=== PATIENT | male | born 1965 | race Caucasian/White ===

== ENCOUNTER 2020-06-09 08:20 | Outpatient (CLI) | payer OTHER, SELFPAY ==
[2020-06-09 08:50] LABS: Hematocrit 45.4 % (42.0-52.0); Hemoglobin 15.4 g/dL (14.0-18.0); Mean Corpuscular HGB Conc 33.9 g/dl (32-36); Mean Corpuscular Hemoglobin 31.5 pg (26-34); Mean Corpuscular Volume 92.8 fl (80-100); Mean Platelet Volume 9.3 fl (7.4-10.4); Platelet Count Result 250 k/mm3 (150-375); Red Blood Count 4.89 M/mm3 (4.6-6.20); Red Cell Distribution Width 13.7 % (11.5-14.5); White Blood Count 5.8 K/mm3 (4.5-10.0)
[2020-06-09 08:59] LABS: Add Urine Microscopic? YES; Appearance Urine Clear (Clear); Bacteria Urine Trace /hpf; Bilirubin Urine Negative (Negative); Blood Urine 1+ (Negative); Color Urine Yellow (Yellow); Glucose Urine UA Negative (Negative); Ketones Urine Negative (Negative); Leukocyte Esterase Ur Negative LEU/UL (NEGATIVE); Mucus Urine Heavy /lpf; Nitrate Urine Negative (Negative); Protein Urine Negative (Negative); RBC Urine 0-2 /hpf (0-2); Specific Grav Ur 1.027 (1.001-1.035); Squamous Epithelial Cell Urine Rare /hpf (Few); Urobilinogen Urine Negative mg/dL (<2.0); WBC Urine 0-3 /hpf (0-3)
[2020-06-09 09:01] LABS: Alanine Aminotransferase 23 U/L (4-50); Alkaline Phosphatase 60 U/L (38-126); Anion Gap 7 mmol/L (8-16); Aspartate Amino Transferase 27 U/L (17-59); Bilirubin,Total 0.6 mg/dL (0.2-1.3); Blood Urea Nitrogen 15 mg/dL (9-20); Calcium 8.7 mg/dL (8.4-10.2); Carbon Dioxide 26 mmol/L (22-30); Chloride 106 mmol/L (98-107); Cholesterol 167 mg/dL (0-200); Estimated Glomerular Filt Rate > 60; Glucose 118 mg/dL (75-110); HDL Direct 43 mg/dL; Potassium 4.1 mmol/L (3.4-5.0); Sodium 139 mmol/L (137-145); Triglycerides 63 mg/dL (<150)
[2020-06-09 09:12] LABS: LDL Cholesterol Direct 99 mg/dL
[2020-06-09 09:31] LABS: Prostate Specific Antigen 0.7 ng/mL (< OR = 4.0)
[2020-06-14 14:17] LABS: Testosterone Free 48.5 pg/mL (35.0-155.0); Testosterone Total 296 ng/dL (250-1100)
== END 2020-06-09 08:21 | disposition home or self-care (01) ==
PROVIDERS: PCP Family Medicine Sports Medicine; Visit Provider Family Medicine Sports Medicine
DX: Z00.00 Encounter for general adult medical examination without abnormal findings (principal); E66.9 Obesity, unspecified; N52.9 Male erectile dysfunction, unspecified; F41.9 Anxiety disorder, unspecified
CPT/HCPCS: 36415; 80053; 80061; 81001; 84153; 84402; 84403; 84443; 85027

== ENCOUNTER 2020-12-26 14:01 | Outpatient (CLI) | payer OTHER, SELFPAY ==
--- NOTE | ~2020-12-26 | XR_ITS ---
EXAMINATION: XR abdomen/kub 1V DATE: 12/26/2020 14:18 INDICATION: Kidney stone. TECHNIQUE: A supine view of the abdomen on 2 radiographs was obtained. COMPARISON: None. FINDINGS: There are no dilated loops of bowel. The kidneys are obscured by bowel. Calcifications in t he pelvis are likely phleboliths. IMPRESSION: 1. No visible urolithiasis. Reviewed, dictated and finalized at location A. DING CODE ADMINISTRATOR IMPRESSION: 1. No visible urolithiasis.
== END 2020-12-26 14:02 | disposition home or self-care (01) ==
LOC: ANHIMG 14:05
PROVIDERS: PCP Family Medicine Sports Medicine; Visit Provider Urology
DX: N20.0 Calculus of kidney (principal)
CPT/HCPCS: 74018

== ENCOUNTER → 2020-12-29 02:51 | Outpatient (CLI) | payer OTHER, SELFPAY ==
[2020-12-29 23:34] LABS: SARS-CoV-2 RNA PCR Negative
== END ==
PROVIDERS: PCP Family Medicine Sports Medicine; Visit Provider Urology
DX: Z01.812 Encounter for preprocedural laboratory examination (principal); Z20.822 Contact with and (suspected) exposure to COVID-19
CPT/HCPCS: C9803; U0003; U0005

== ENCOUNTER 2021-01-01 02:52 | Day surgery (SDC) | payer OTHER, SELFPAY ==
[2020-12-27 09:14] VITALS: BMI 32.8
[2021-01-01] VITALS (7 sets, daily range): BP systolic 123–146; BP diastolic 79–90; PULSE 57–74; RESP 12–20; TEMP 36.5–36.8; O2SAT 96–100
--- NOTE | ~2021-01-01 | XR_ITS ---
EXAMINATION: XR retrograde pyelo w/stent LT EXAM DATE: 01/01/2021 09:06 INDICATION: Left-sided obstructive nephropathy. TECHNIQUE: Fluoroscopy used during XR retrograde pyelo w/stent LT performed by Dr. Khang collins MD. The DAP for this procedure was 583 radcm2. FINDINGS: The left ureter was cannulated, injected in retrograde fashion and a double-J ureteral amaya nt was positioned. Correlate with procedure note. IMPRESSION: Fluoroscopy used during XR retrograde pyelo w/stent LT. Reviewed, dictated and finalized at location A. SHAPER
[2021-01-01] MEDS: LACTATED RINGERS 1,000 ML 30 ML IV CONT (06:56)
--- NOTE | 2021-01-01 07:40 | WPDHPUPDATE1 ---
History and Physical Update Update Date/Time: 01/01/21 07:40 History and Physical has been reviewed, including an updated exam of the patient. There are NO changes in the patient's condition. Risks, benefits, and alternatives have been discussed and questions answered. Patient agrees to proceed with procedure. Proceed with cysto, left ureteroscopy, stone extraction, possible laser and stent placement
--- NOTE | 2021-01-01 07:55 | WPDANESEPPF ---
Anes - Initial Pre Proc Eval Procedure: Operation Date: 01/01/21 08:15 Proposed Procedures p Cystoscopy, Left Retrograde Pyelogram, Left Ureteroscopy With Stone Extraction, Possible Left Stent Placement - Khang Blair MD s Possible Holmium Laser Procedure - Khang Blair MD Date/Time: 01/01/21 07:55 Surgeon: Khang Blair MD Pre Op Diagnosis: Left Ureteral Stone Patient Data Age: 55 Gender: M Height: 1.78 m Weight: 103.2 kg Last Vital Signs Temp 36.8 C 01/01/21 06:30 Pulse 74 01/01/21 06:30 Resp 20 01/01/21 06:30 BP 146/88 H 01/01/21 06:30 Pulse Ox 100 01/01/21 06:30 Allergies Allergy/AdvReac Type Severity Reaction Status Date / Time Penicillins Allergy Mild Swelling Verified 01/01/21 07:27 Home Medications Medication Instructions Recorded Confirmed Type brimonidine-timolol [Combigan] 1 drp EACH EYE DAILY 12/27/20 01/01/21 History hydrocodone-acetaminophen 1 tablet PO DAILY 12/27/20 12/27/20 History ondansetron 1 mg PO DAILY 12/27/20 12/27/20 History tamsulosin 1 mg PO DAILY 12/27/20 01/01/21 History Patient hx anesthesia problems: none Family hx anesthesia problems: none [facility] Past Medical History Medical History (Updated 01/01/21 @ 07:56 by Adams Merrill MD) Obesity GEORGE on CPAP Social History Social History Smoking status: Never smoker Second hand tobacco smoke exposure: No Substance use: never Substance use type: does not use Living arrangements: with family Gender identity (if verbalized by the patient): Male Spiritual care concerns: No Anes - Eval Final PreProcedure Day of Procedure 01/01/21 07:55 Patient weight: obese Heart: regular rate and rhythm Lungs: clear to auscultation and normal air movement Airway: Mallampati scale class II Neurological: alert and oriented Last oral intake: >/= 8 hours ASA classification: II Emergent: no Anesthetic plan: proceed Anesthesia type and monitoring: general LMA Informed Consent: The patient's anesthetic plan and its attendant risks and benefits were discussed with the patient/family/POA. Questions were solicited and answers provided to the satisfaction of the patient/family/POA.
[2021-01-01] MEDS: levoFLOXacin 500 MG/D5W 100 ML 500 MG/100 ML BAG 100 MG IVPB (08:23)
[2021-01-01] MEDS: LIDOCAINE HCL 2% GEL UROJET 10 ML PKG MUCOUS MEM (08:54)
--- NOTE | 2021-01-01 09:02 | PM.PROC ---
Procedure Note - Detailed Date of procedure: 01/01/21 Pre-op diagnosis: Left Ureteral Stone Post-op diagnosis: same Procedure performed: Cystoscopy, left retrograde pyelogram, left ureteroscopy, holmium laser of left ureteral stone, stone extraction, left ureteral stent placement 4.8 Iranian contour. Description of procedure: Patient is taken the operative suite and correctly identified. Once anesthesia was obtained he was placed in dorsal lithotomy position and prepped and draped usual sterile fashion. Twenty-two Iranian scope was inserted the bladder. He does have somewhat of an enlarged prostate. Bladder is inspected in its entirety and there are no tumors noted. Both ureteral orifices in their normal anatomic position. A guidewire was inserted into the left ureteral orifice and the ureter was dilated with an 8/10 dilator. Rigid ureteral scope was then inserted. The stone was visualized. It was too large to retrieve 1 piece. Using a 273 micron fiber we fragmented the stone in multiple pieces. These were extracted. Pyelogram was then performed to confirm placement of the stent. 4.8 Iranian contour stent was then placed with the proximal end in the upper pole the distal in the bladder. Bladder was drained 2% viscous lidocaine was inserted urethra. I should state that there was a calcification in right lower pelvic region. I did place a guidewire into the right ureteral orifice to make sure that that calcification was outside the ureter and indeed it was. Anesthesia: GLMA Surgeon: Khang Blair MD Drains: Yes Packing: No Pathology: yes Complications: No immediate complications Condition: stable Disposition: PACU
[2021-01-01] MEDS: fentaNYL CITRATE INJ (*CRX) 100 MCG/2 ML VIAL 25 MCG IV PUSH ×2 (09:33→09:36)
== END 2021-01-01 11:00 | disposition home or self-care (01) ==
PROVIDERS: PCP Family Medicine Sports Medicine; Visit Provider Urology
PROC: (CPT 52352; principal; 2021-01-01 08:15)
PROC: (CPT 52356; 2021-01-01 08:15)
DX: N20.1 Calculus of ureter (principal); G47.33 Obstructive sleep apnea (adult) (pediatric); E66.9 Obesity, unspecified; Z68.32 Body mass index [BMI] 32.0-32.9, adult
CPT/HCPCS: 52356; 74420; 82365; 88300; A9270; C1769; C2617; C9803; J1100; J1956; J2250; J2405; J2704; J3010; J7120; Q9966; U0003; U0005

== ENCOUNTER → 2021-07-01 13:22 | Outpatient (CLI) | payer OTHER, SELFPAY ==
--- NOTE | ~2021-07-01 | XR_ITS ---
EXAMINATION: XR abdomen w oblique DATE: 07/01/2021 14:34 INDICATION: Left lower quadrant abdominal pain. TECHNIQUE: Anteroposterior and bilateral oblique views of the abdomen on 6 radiographs were obtained. COMPARISON: CT abdomen and pelvis 07/01/2021 FINDINGS: There are no dilated loops of bowel. There is contrast in the kidneys, ureters, and bladder , which are normal. IMPRESSION: 1. No etiology for the patient's symptoms. Reviewed, dictated and finalized at location A.
--- NOTE | ~2021-07-01 | CT_ITS ---
EXAMINATION: CT abdomen pelvis wo/w con DATE: 07/01/2021 14:33 INDICATION: Left lower quadrant abdominal pain. TECHNIQUE: Computed tomography (CT) of the abdomen and pelvis was performed without and with intraven ous contrast using a total of 130 mL Omnipaque-350 intravenous contrast with a double-bolus technique for simultaneous opacification of the renal parenchyma and renal collecting system. Automated exposu re control and iterative reconstruction technique were employed. The dose-length product was 2295.62 mGy-cm. COMPARISON: None FINDINGS: The visualized portions of the lung bases demonstrate mild atelectasis. No pleural effusion. The hear t size is normal. No pericardial effusion. There is a small sliding hiatal hernia. The liver, gallbla dder, spleen, pancreas, and adrenal glands are normal. There are cysts in the kidneys including perip elvic cysts measuring up to 3.9 cm on the right. There is a 2 mm stone in left kidney. The ureters ar e not well opacified distally, but are normal. The bladder is not well distended. The prostate is mil dly enlarged. There is a right inguinal hernia containing fat. There are no dilated loops of bowel. T he appendix is normal. There are no pathologically enlarged lymph nodes. There is no free intraperito karin fluid. There is mild thoracolumbar spondylosis. There is a benign bone island in T10 vertebral b lorene. IMPRESSION: 1. 2 mm nonobstructing left kidney stone. Reviewed, dictated and finalized at location A.
[2021-07-01 13:59] LABS: Estimated Glomerular Filt Rate > 60
== END ==
PROVIDERS: PCP Family Medicine Sports Medicine; Visit Provider Nurse Practitioner Adult Health
DX: R10.32 Left lower quadrant pain (principal); N20.0 Calculus of kidney
CPT/HCPCS: 74021; 74178; Q9967

== ENCOUNTER → 2021-07-01 13:23 | Outpatient (CLI) | payer OTHER, SELFPAY ==
--- NOTE | ~2021-07-01 | XR_ITS ---
EXAMINATION: XR foot LT min 3V DATE: 07/01/2021 13:49 INDICATION: Left foot pain. TECHNIQUE: 3 views of left foot standing were obtained. COMPARISON: None. FINDINGS: Bone alignment is normal. No fracture. There are likely surgical changes of head of second proximal phalanx. There is mild osteoarthritis of first metatarsophalangeal joint. IMPRESSION: 1. Mild osteoarthritis of first metatarsophalangeal joint. Reviewed, dictated and finalized at location A.
--- NOTE | ~2021-07-01 | XR_ITS ---
EXAMINATION: XR foot RT min 3V DATE: 07/01/2021 13:49 INDICATION: Right foot pain. TECHNIQUE: 3 views of right foot standing were obtained. COMPARISON: None. FINDINGS: Bone alignment is normal. No acute fracture. There are likely surgical changes of head of s econd proximal phalanx. There is mild osteoarthritis of first and second metatarsophalangeal joints a nd some of the interphalangeal joints. IMPRESSION: 1. Mild polyarticular osteoarthritis. Reviewed, dictated and finalized at location A.
== END ==
PROVIDERS: PCP Family Medicine Sports Medicine; Visit Provider Podiatrist Foot & Ankle Surgery
DX: M19.071 Primary osteoarthritis, right ankle and foot (principal); M19.072 Primary osteoarthritis, left ankle and foot
CPT/HCPCS: 73630

== ENCOUNTER 2021-07-22 11:49 | Outpatient (CLI) | payer OTHER, SELFPAY ==
[2021-07-22 12:57] LABS: Add Urine Microscopic? YES; Appearance Urine Clear (Clear); Bilirubin Urine Negative (Negative); Blood Urine Negative (Negative); Color Urine Yellow (Yellow); Glucose Urine UA Negative (Negative); Ketones Urine Negative (Negative); Leukocyte Esterase Ur Negative LEU/UL (NEGATIVE); Mucus Urine Rare /lpf; Nitrate Urine Negative (Negative); Protein Urine Negative (Negative); Specific Grav Ur 1.018 (1.001-1.035); WBC Urine 0-3 /hpf (0-3)
== END 2021-07-22 11:50 | disposition home or self-care (01) ==
PROVIDERS: PCP Family Medicine Sports Medicine; Visit Provider Nurse Practitioner Adult Health
DX: R31.29 Other microscopic hematuria (principal)
CPT/HCPCS: 81001

== ENCOUNTER 2023-10-30 20:45 | Emergency (ER) | payer OTHER, SELFPAY ==
--- NOTE | ~2023-10-30 | XR_ITS ---
EXAMINATION: XR chest 2V DATE: 10/30/2023 21:19 INDICATION: Cough, chest pain and shortness of breath TECHNIQUE: PA and lateral views of the chest were obtained. COMPARISON: None FINDINGS: The lungs are clear with no focal airspace opacities, pulmonary edema, pleural effusion or pneumothor ax. The cardiomediastinal silhouette is normal. Visualized bones and soft tissues are unremarkable. IMPRESSION: 1. No acute cardiopulmonary disease. Reviewed, dictated and finalized at location A. APY SITE COORDINATOR
--- NOTE | 2023-10-30 20:48 | ECG_ITS ---
Measurements Intervals [place] Rate: 83 P: 40 ND: 176 QRS: -6 QRSD: 90 T: 22 QT: 348 QTc: 409 Interpretive Statements SINUS RHYTHM POSSIBLE RIGHT VENTRICULAR CONDUCTION DELAY [RSR (QR) IN V1/V2] NO PREVIOUS ECG AVAILABLE FOR COMPARISON Electronically Signed On 11-01-2023 14:22:11 CHAIR POST MACHINE OPERATOR by Graham Riggs M.D.
[2023-10-30 20:52] VITALS: BP 150/84; PULSE 87; RESP 20; TEMP 37.1; O2SAT 96
[2023-10-30 20:58] LABS: Basophils Absolute Auto 0.1 K/mm3 (0.0-0.1); Basophils Percent Auto 0.7 % (0.2-1.2); Eosinophils Absolute Auto 0.3 K/mm3 (0-0.3); Eosinophils Percent Auto 2.9 % (0-4.4); Hematocrit 46.2 % (42.0-52.0); Hemoglobin 15.2 g/dL (14.0-18.0); Immature Granulocyte Absolute 0.06 K/mm3 (0.00-0.031); Immature Granulocyte Percent A 0.6 % (0-0.5); Lymphocytes Absolute Auto 1.98 K/mm3 (0.9-3.2); Lymphocytes Percent Auto 19.3 % (18.3-44.2); Mean Corpuscular HGB Conc 32.9 g/dl (32-36); Mean Corpuscular Hemoglobin 31.5 pg (26-34); Mean Corpuscular Volume 95.7 fl (80-100); Mean Platelet Volume 9.1 fl (7.4-10.4); Monocytes Percent Auto 9.3 % (2.6-8.5); Neutrophils Absolute Auto 6.9 K/mm3 (1.3-6.7); Neutrophils Percent Auto 67.2 % (45.5-73.1); Platelet Count Result 284 k/mm3 (150-375); Red Blood Count 4.83 M/mm3 (4.6-6.20); Red Cell Distribution Width 14.1 % (11.5-14.5); White Blood Count 10.3 K/mm3 (4.5-10.0)
[2023-10-30 21:09] LABS: INR 0.9; Prothrombin Time 12.8 Seconds (11.1-14.7)
[2023-10-30 21:10] LABS: Alanine Aminotransferase 65 U/L (6-50); Albumin Level 4.2 g/dL (3.5-5.1); Alkaline Phosphatase 72 U/L (38-126); Anion Gap 6 mmol/L (8-16); Aspartate Amino Transferase 46 U/L (17-59); Bilirubin,Total 0.6 mg/dL (0.2-1.3); Blood Urea Nitrogen 18 mg/dL (9-20); Calcium 9.1 mg/dL (8.4-10.2); Carbon Dioxide 28 mmol/L (22-30); Chloride 107 mmol/L (98-107); Estimated CRCL calculation 97 ml/min; Estimated Glomerular Filt Rate > 60; Glucose 112 mg/dL (65-110); Lipase 71 U/L (23-300); Partial Thromboplastin Time 28.3 SECONDS (22.3-36.8); Sodium 141 mmol/L (137-145)
[2023-10-30 21:22] LABS: Troponin I < 0.012 ng/mL (0.000-0.034)
--- NOTE | 2023-10-30 23:26 | ECG_ITS ---
Measurements Intervals [place] Rate: 77 P: 43 NM: 183 QRS: -4 QRSD: 97 T: 8 QT: 362 QTc: 412 Interpretive Statements SINUS RHYTHM POSSIBLE LEFT ATRIAL ENLARGEMENT [-0.1mV P WAVE IN V1/V2] INCOMPLETE RIGHT BUNDLE BRANCH BLOCK [90+ ms QRS DURATION, TERMINAL R IN V1/V2, 40+ ms S IN I/aVL/V4/V5/V6] COMPARED TO ECG 10/30/2023 20:51:16 NO SIGNIFICANT CHANGES Electronically Signed On 11-01-2023 14:23:39 ASSOCIATE CREATIVE DIRECTOR by Graham Riggs M.D.
[2023-10-30 23:30] VITALS: PULSE 81; O2SAT 96
[2023-10-30 23:31] VITALS: O2SAT 96
[2023-10-30 23:33] VITALS: BP 150/95; PULSE 78; RESP 22; TEMP 36.4; O2SAT 96
--- NOTE | 2023-10-30 23:56 | ED.GENADULT ---
[facility] - General Adult General Chief complaint: Chest Pain Stated complaint: CHEST PAIN, COUGH Time Seen by Provider: 10/30/23 23:28 Source: patient Mode of arrival: ambulatory Limitations: no limitations History of Present Illness HPI narrative: this is a 58-year-old male with PMH of GEORGE who presents to the ED with chief complaint of congestion, cough the past 2-3 weeks. Reports that he had episodes of feeling short of breath today. Reports tightness/soreness in the chest feels this is due to the cough. reports the cough is intermittently productive with episodes of yellow/clear sputum. Reports headache and right ear fullness as well. Reports subjective fevers and chills at home. Denies abdominal pain, nausea, vomiting, diarrhea. Recently seen by PCP and given inhaler and felt like this helped the 1st day but has not been helping since. Related Data Home Medications Medication Instructions Recorded Confirmed brimonidine 0.2 %-timolol 0.5 % 1 drp EACH EYE DAILY 12/27/20 01/01/21 eye drops (Combnely) hydrocodone 5 mg-acetaminophen 325 1 tablet PO DAILY 12/27/20 12/27/20 mg tablet ondansetron 4 mg disintegrating 1 mg PO DAILY 12/27/20 12/27/20 tablet tamsulosin 0.4 mg capsule 1 mg PO DAILY 12/27/20 01/01/21 Allergies Allergy/AdvReac Type Severity Reaction Status Date / Time Penicillins Allergy Mild Swelling Verified 10/30/23 21:02 Review of Systems Review of Systems: All systems as dictated in [facility] Past Medical History Medical History (Updated 10/31/23 @ 00:11 by Derrell Cortes PA-C) Obesity GEORGE on CPAP Social History Social History Smoking status: Never smoker Second hand tobacco smoke exposure: No Substance use: never Substance use type: does not use Living arrangements: with family Gender identity (if verbalized by the patient): Male Spiritual care concerns: No Exam Narrative: GENERAL: Well-appearing, well-nourished, and in no acute distress. HEAD: Normocephalic, atraumatic. EYES: PERRLA and EOMI. ENT: Nares clear, no rhinorrhea or epistaxis. Mucous membranes moist. Oropharynx without tonsillar hypertrophy exudate or other lesions. NECK: Supple. No adenopathy or masses. CHEST: No respiratory distress. Clear to auscultation. No wheezes rales or rhonchi. 96% room air. HEART: Regular rate and rhythm. No murmur heard. Normal peripheral pulses. ABDOMEN: Soft, nontender, nondistended, normal active bowel sounds. MSK: Normal range of motion. No edema. SKIN: Warm, dry, no rash. NEURO: Alert and oriented x3. No focal deficits. PSYCH: Normal mood and affect. Course Vital Signs Vital signs: Vital Signs Temperature 98.8 F 10/30/23 20:52 Pulse Rate 87 10/30/23 20:52 Respiratory Rate 20 10/30/23 20:52 Blood Pressure 150/84 H 10/30/23 20:52 Pulse Oximetry 96 10/30/23 20:52 Oxygen Delivery Room Air 10/30/23 20:52 Temperature 97.4 F L 10/31/23 00:32 Pulse Rate 79 10/31/23 00:32 Respiratory Rate 16 10/31/23 00:32 Blood Pressure 141/94 H 10/31/23 00:32 Pulse Oximetry 96 10/31/23 00:32 Oxygen Delivery Room Air 10/30/23 23:31 Medical Decision Making [facility] Narrative Medical decision making narrative: This is a 58-year-old male who presents to the ED with chief complaint of productive cough, congestion and subjective fevers. Vitals are normal. Afebrile. Was recently seen base PCP and given treatment for viral syndrome. He feels like the cough is worsening. Exam is unremarkable. Viral swabs are negative. Lab work shows slightly elevated white count at 10.3. CMP unremarkable. Troponin normal. Clinically presentation is consistent with walking or atypical pneumonia. respiratory exam intact in saturating well on room air. he will be started on levofloxacin and Discharged in stable condition. Return precautions given supportive measures discussed. Patient is understanding and agreeable with the plan for
[2023-10-31 00:19] LABS: Troponin I < 0.012 ng/mL (0.000-0.034)
[2023-10-31 00:20] VITALS: BP 141/94; PULSE 79; RESP 12; O2SAT 95
[2023-10-31] MEDS: levoFLOXacin 750 MG TABLET PO (00:20)
[2023-10-31 00:24] LABS: Influenza A QL RT-PCR Negative (Negative); Influenza B QL RT-PCR Negative (Negative); RSV RNA, RT-PCR Negative (Negative); SARS-CoV-2 RNA PCR Negative (Negative)
[2023-10-31 00:32] VITALS: BP 141/94; PULSE 79; RESP 16; TEMP 36.3; O2SAT 96
== END 2023-10-31 00:33 | disposition home or self-care (01) ==
PROVIDERS: Emergency Medicine; Emergency Provider Physician Assistant
DX: R05.9 Cough, unspecified (principal); Z20.822 Contact with and (suspected) exposure to COVID-19; E66.9 Obesity, unspecified; Z68.30 Body mass index [BMI] 30.0-30.9, adult; G47.33 Obstructive sleep apnea (adult) (pediatric); R94.31 Abnormal electrocardiogram [ECG] [EKG]; I45.10 Unspecified right bundle-branch block
CPT/HCPCS: 36415; 71046; 80053; 83690; 84484; 85025; 85610; 85730; 87637; 93005; 99284; A9270

== ENCOUNTER 2025-02-17 11:13 | Outpatient (CLI) | payer OTHER, SELFPAY ==
--- OUTSIDE RECORDS SUMMARY | 2025-02-17 11:29 | XMS_ITS | Clinical Summary ---
Author Organization [facility] [employer] Address [address] [place] [address] Care Team Providers Care Log Haul Operator Name Role Phone Prem Moore MD Primary Care Provider [phone] Source Comments [facility] Affiliates and Associated Physician Practices is amultiple site organization consisting of ambulatory clinics and hospital sitesin [place], [place], [place] and [place]. This disclosure is being madepursuant to the Care Everywhere program and may not contain all information available regarding this patient. Last updated 18.[facility] Allergies Active Allergy Reactions Criticality Noted Date Comments Penicillins Urticaria Medium 11/21/2018 Medications * Be aware that medications may not be up to date on this document. Alwaysverify current medications with the patient. OtherIndications :eye drops Reasons: eye drops Active azithromycin (ZITHROMAX) 250 MG tabletIndication s:Bilateral otitis media, unspecified otitis media type Take 2 tabs today, then 1 tab daily for next 4 days 6 tablet 9 Active benzonatate (TESSALON) 100 MG capsuleIndicatio ns:Cough Take 1 capsule by mouth 3 times daily as needed for Cough Reasons: Cough 30 capsule 9 Active Additional Information Patient not taking.Reported on 11/27/2018 fluticasone propionate (FLONASE) 50 MCG/ACT nasal sprayIndications :Bilateral otitis media, unspecified otitis media type Leonard 2 sprays into each nostril once daily 1 bottles 9 Active Social History Tobacco Use Types Packs/Day Years Used Date Smoking Tobacco: Never Smokeless Tobacco: Never Sex and Gender Information Value Date Recorded Sex Assigned at Not on file Legal Sex Male 4:57 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 Gender Identity Not on file Sexual Orientation Not on file Last Filed Vital Signs Vital Sign Reading Time Taken Comments Blood Pressure 118/68 11/27/2018 12:45 PM SERVICE TRANSFORMER REPAIR SUPERVISOR Pulse 84 11/27/2018 12:45 PM SERVICE TRANSFORMER REPAIR SUPERVISOR Temperature 36.5 C (97.7 F) 11/27/2018 12:45 PM SERVICE TRANSFORMER REPAIR SUPERVISOR Respiratory Rate 15 11/27/2018 12:45 PM SERVICE TRANSFORMER REPAIR SUPERVISOR Oxygen Saturation 98% 11/27/2018 12:45 PM SERVICE TRANSFORMER REPAIR SUPERVISOR Inhaled Oxygen Concentration - - Weight 99.8 kg (220 lb) 11/27/2018 12:45 PM SERVICE TRANSFORMER REPAIR SUPERVISOR Height 180.3 cm (5' 11 ) 11/27/2018 12:45 PM SERVICE TRANSFORMER REPAIR SUPERVISOR Body Mass Index 30.68 11/27/2018 12:45 PM SERVICE TRANSFORMER REPAIR SUPERVISOR Plan of Treatment Health Maintenance Due Date Last Done Comments COLOGUARD (AGES 45-75) - COL ON CA SCREENING 1967 COLON MONITORING 1967 COLONOSCOPY - COLON CA SCREENING 1967 CT COLONOGRAPHY - COLON CA SCREENING 1967 Colorectal Cancer Screening 1967 FIT - COLON CA SCREENING 1967 FLEX SIG - COLON CA SCREENING 1967 LIPID TESTING 1967 HIV SCREENING 1982 HEPATITIS C SCREENING 10/11/1985 DTAP/TDAP/TD VACCINES (1 - Tdap) 1986 HEPATITIS B VACCINE (1 of 3 - 19+ 3-dose series) 1986 PNEUMOCOCCAL VACCINE 50+ (1 of 1 - PCV) 2017 ZOSTER VACCINE (1 of 2) 2017 SCREENING FOR DIABETES 11/21/2018 COVID-19 VACCINE ( - 2023-2 5 season) 2024 DEPRESSION SCREENING 11/02/2024 INFLUENZA VACCINE (Season Ended) 2025 HIB VACCINE Aged Out No longer eligi ble based on patient's age to complete this topic HPV VACCINE Aged Out No longer eligi ble based on patient's age to complete this topic MENINGOCOCCAL (Group B) VACC INE SHARED DECISION-MAKING Aged Out No longer eligibl e based on patient's age to complete this topic MENINGOCOCCAL GROUPS A/C/Y/W VACCINE Aged Out No longer eligible b ased on patient's age to complete this topic Insurance Care Teams Log Haul Operator Relationship Specialty Start Date End Date Prem Moore MD [facility] [place] [address] PCP - General 01/09/21
--- OUTSIDE RECORDS SUMMARY | 2025-02-17 11:29 | XMS_ITS | CONTINUITY OF CARE DOCUMENT ---
Author Name delia lin Address Unknown Organization [facility] Address [address] [place] [address] Phone [phone] Care Team Providers Care Honing Machine Operator Production Name Role Phone Catalino DELVALLE, Hanna Unavailable EVANGELINA ESPINOZA MD Unavailable EVANGELINA ESPINOZA MD Unavailable INSURANCE PROVIDERS Payer name Policy type / Coverage type Jack red green party ID [facility] [employer] [id number]
--- OUTSIDE RECORDS SUMMARY | 2025-02-17 11:29 | XMS_ITS | Continuity of Care Document ---
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 Role Phone Alexandra OD, Juni Unavailable Unavailable Procedures Procedure Date Office/outpatient Visit, Est Optic Nerve Topography Optic Nerve Topography Visual Field Examination(s) Office/outpatient Visit, Est Office/outpatient Visit, Est Eye Exam Established Pt Office/outpatient Visit, Est Corneal Pachymetry Dilated Macular Or Fundus Exam Findings Communicat Office/outpatient Visit, Est Optic Nerve Topography Optic Nerve Topography Visual Field Examination(s) Office/outpatient Visit, Est Office/outpatient Visit, Est Office/outpatient Visit, Est Office/outpatient Visit, Est Fundus Photography W/ Report Advance Directives Directive Yes / No Effective Date File Name No Information Encounters Encounter Description Practice Location Reason(s) For Visit Diagnoses Date Provider Providers Copied on Encounter Office/outpat ient Visit, Est [facility], [address] [place] [address] [address], [place], [place], [id number], [place] tel:[phone] [facility] Corporate Center No Information 1-201 0 Alexandra OD Juni. [address] , [address], [place], [place], [facility], [place]. tel:[phone] [facility], [address] [place] [address] [address], [place], [place], [id number], tel:[phone] [facility] No Information 9-201 0 Alexandra OD Juni. [address] [place], [place] [address]ate Center , [address], [place], [place], [facility], [place]. tel:[phone] Referring Provider: Juni Alexandra OD A, [facility] [address], [place], [place], [facility]. tel:[phone] [facility], [address] [place] [address] [address], [place], [place], [id number], tel:[phone] [facility] [place] No Information 1 7-200 9 Alexandra OD Juni. [address] [place], [place] [address], [place], [place], [facility], [place]. tel:[phone] Referring Provider: Juni Alexandra OD A, [address] [place], [place] [address]ate [address], [place], [place], [facility]. tel:[phone] Office/outpat ient Visit, [facility], [address] [place] [address] [address], [place], [place], [id number], tel:[phone] [facility] [place] No Information 1-200 9 Alexandra OD Juni. [address] [place], [place] [address]ate Center , [address], [place], [place], [facility], [place]. tel:[phone] Office/outpat ient Visit, [facility], [address] [place] [address] [address], [place], [place], [id number], [place] tel:[phone] [facility] [place] No Information Aug-2 1-200 8 Alexandra OD Juni. [address] [place], [place] [address]ate Center , [address], [place], [facility], [place]. tel:[phone] [facility], [address] [place] [address] [address], [place], [place], [id number], [place] tel:[phone] [facility] [place] No Information Behzad-0 3-200 8 Alexandra OD Juni. [address] [place] [address] Center , [address], [place], [address], [place]. tel:[phone] Office/outpat ient Visit, Est [facility], [address] [place] [address] [address], [place], [place], [id number], [place] tel:[phone] [facility] [place] No Information May-2 0-200 8 Alexandra OD Juni. [address] [place] [address] Center , [address], [place], [address], [place]. tel:[phone] Referring Provider: Juni Aguilar, [address] [place] [address] [address], [place], [place], [facility]. tel:[phone] Office/outpat ient Visit, Est [facility], [address] [place] [address] [address], [place], [place], [id number], [place] tel:[phone] [facility] [place] No Information J Luis-0 2-200 8 Alexandra OD Juni. [address] [place] [address] Center , [address], [place], [address], [place]. tel:[phone] [facility], [address] [place] [address] [address], [place], [place], [id number], [place] tel:[phone] [facility] [place] No Information Dec-2 8-200 7 Alexandra OD Juni. [address] [place] [address] Center , [address], [place], [address], [place]. tel:[phone] Referring Provider: Juni Alexandra OD A, [address] [place], [place] [address]ate [address], [place], [address]. tel:[phone] [facility], [address] [place] [address] [address], [place], [place], [id number], [place] tel:[phone] [facility] [place] No Information 1-200 7 Alexandra OD Juni. [address] [facility] [address] , [address], [place], [facility], [place]. tel:[phone] Referring Provider: Juni Alexandra OD A, [address], [place], [facility]. tel:[phone] Office/outpat ient Visit, [facility] [address] [place] [address] [address], [place], [place], [id number], [place] tel:[phone] SEC [facility] No Information 2-200 7 Alexandra OD Juni. [address] [facility] [address] , [address], [place], [facility], [place]. tel:[phone] Office/outpat ient Visit, [facility] [address] [place] [address] [address], [place], [place], [id number], [place] tel:[phone] SEC [facility] No Information 3 0-200 7 Alexandra OD Juni. [facility] [address], [address], [place], [facility], [place]. tel:[phone] Office/outpat ient Visit, [facility] [address] [place] [address] [address], [place], [place], [id number], [place] tel:[phone] SEC [facility] No Information 6-200 7 Alexandra OD Juni. [address], [address], [place], [address], [place]. tel:[phone] Office/outpat ient Visit, [facility] [address] [place] [address] [address], [place], [place], [id number], [place] tel:[phone] [facility] [place] No Information Oct-2 9-200 6 Alexandra OD Juni. [address] [facility] [address], [address], [place], [address], [place]. tel:[phone] Referring Provider: Juni Aguilar, [address], [place], [address]. tel:[phone] Family History Family Member Type Diagnosis Age At Onset No Information Payers Payer name Insurance type Covered constitution party ID Authoriza tion(s) No Information Social History Type Description Quantity Date Captured Comments Sex Male Smoking Status No Information Chief Complaint And Reason For Visit No Information Reason For Referral Reason For Referral No Information History Of Present Illness Encounter Date Complaint History Of Prese nt Illness No Information Functional Status Date Functional Assessmen t No Information Instructions Date Instruction Additional Infor mation No Information Assessments Type Assessment Date No Information Patient Care Teams Name Effective Dates (start - stop) Status Members No Information
--- OUTSIDE RECORDS SUMMARY | 2025-02-17 11:29 | XMS_ITS | Encounter Summary ---
Author Organization [facility] Address [address] [facility] [place] [address] Care Team Providers Care [employer] Name Role Phone Prem Moore MD Primary Care Provider [phone] Encounter Details Date Type Department Care Team (Late st Contact Info) Description 12/25/2020 Lab Requisition [facility] [address] [place] [address] Hari Flores MD [address] [place] [address] Social History Tobacco Use Types Packs/Day Years Used Date Smoking Tobacco: Never Smokeless Tobacco: Never Sex and Gender Information Value Date Recorded Sex Assigned at Not on file 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 Gender Identity Not on file Sexual Orientation Not on file documented as of this encounter Plan of Treatment Not on file documented as of this encounter Procedures Procedure Name Priority Date/Time Associated Diagnosis Comments DERMATOPATHOLOGY Routine 12/24/2020 12:0 0 AM [employer] 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 10:46 AM [facility] DERMATOPATHOLOGY [facility]ORATORY Gross Description Specimen A: Received is one formalin filled container labeled with the patient's name and designated right lateral mid back. The specimen consists of a shave biopsy measuring [id number]. Jar 0. 10:46 AM [facility] DERMATOPATHOLOGY LABORATORY Microscopic Description Specimen A. SKIN, right lateral mid back: This is a compound nevus. There is architectural disorder characterized by a lentiginous proliferation of melanocytes between irregular nevus nests of cells along the dermal-epidermal junction. There is underlying lamellar fibroplasia of the papillary dermis. The intradermal component is bland in appearance and matures with depth. (Compound Lio's Nevus or Compound Dysplastic Nevus) There is focal parakeratosis and mild spongiosis of the epidermis. In the dermis there is a mainly superficial perivascular lymphoid infiltrate. COMMENT: These histological findings can be seen in an eczematous dermatitis. 10:46 AM [facility] DERMATOPATHOLOGY LABORATORY Disclaimer An external and internal positive and negative controls are appropriate for the histochemical, immunohistochemical and immunofluorescence stain(s) in this case (if any), except where stated explicitly. The performance characteristics of the stain(s) cited in this report were developed and its performance characteristic determined by the Dermatopathology Laboratory at [facility], directed by Dr. Verna Medina. These tests need not be, and therefore are not, approved by the [place] Food and Drug Administration. The tests are used for clinical purposes. 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
--- OUTSIDE RECORDS SUMMARY | 2025-02-17 11:29 | XMS_ITS | Data Portability ---
Author Organization [place] [facility] [employer], Main Office Address [address] [place] [address] Assessment Encounter Date Assessment Date Assessment LastModified by Organization Details LastModified Time 04/23/2023 04/23/2023 Assessment: Moderate OSAHS, AHI = 25 Plan: The following were reviewed and explained to the patient: [facility] home sleep study 03/30/19 PAP compliance downloaded and interpreted x 20 minutes. Data reviewed and explained to the patient. Average apnea/hypopnea index (AHI) is 0.7. Patient used PAP > 4 hours 99% of the time. Major leakage is present times of use. PAP is set at 9-13 cmH2O. PAP will remain at 9-13 cmH2O. Oxygen supplementation: none Patient is benefiting from PAP therapy. Encouraged patient to maintain PAP use more than 70% of the time. Statement of PAP use and benefits will be sent to the home care store. The patient will bring the PAP unit, the hose, the cord, the mask and the card/chip to each follow-up visit for further evaluation and adjustments. Educated the patient on problems and solutions associated with positive airway pressure (PAP) use. Difficulty tolerating pressure, mask leaks, intolerance of interface, nasal congestion, claustrophobic response, dry mouth, and unintentional mask removal during sleep were covered. Patient has intolerance to interface. Patient will loosen mask slightly, ensure mask is situated properly, inspect and replace interface if worn out, use barrier such as moleskin or bandage for irritation at bridge of nose, have a temporary holiday from PAP, resize mask or obtain an oral interface. A major predictor of success with use of PAP is follow-up with both the respiratory supplier and the treating physician. To help assess adherence, a downloadable card/chip is ordered with the PAP equipment. The card/chip will be downloaded by the respiratory supplier and sent to the treating physician. The download results can show the treating physician information about adherence to treatment, residual AHI while on treatment and presence of large mask leakage. This information is especially helpful if the patient has residual sleepiness despite treatment. General information on sleep disorder breathing, evaluation of sleep disordered breathing, treatment with PAP therapy, and living with PAP therapy were covered. We discussed with the patient the impact of weight on: Sleep disordered breathing Hypertension DM SYDNI Osteoarthritis Plantar fasciitis We discussed with the patient the benefit of PAP therapy on: Sleep disordered breathing Rhinitis Hypertension DM SYDNI Educated the patient on sleep hygiene measures. Relaxing rituals to rest easy, understanding foods with positive and negative impact on sleep, creating a peaceful sleep environment, timing of exercise, using herbal sleep aids, and practicing sleep-friendly meditation were covered. To determine how much sleep is needed, the patient will assess where (s)he falls on the spectrum, examine what lifestyle factors such as work schedules and stress are affecting the quality and quantity of sleep. In general, adults need 7-9 hours of sleep. Educated the patient regarding foods that promote sleep. These include but are not limited to cherries, bananas, toast, oatmeal, and warm milk. Educated the patient regarding foods and drinks to avoid before bedtime. These include but are not limited to aged cheese, chocolate, spicy foods, tomato-based sauces, soy, ginseng tea and processed meat. Advocated influenza vaccination annually and pneumonia vaccination JEROME. Advocated weight loss through diet and exercise. Patient's ideal body weight according to height and gender is up to 185 lbs. Encouraged patient to adjust caloric intake to maintain/achieve ideal body weight, emphasizing on fruits, vegetables, whole grains, and fat-free or low-fat products. These include lean meats, poultry, fish, beans, eggs, and nuts and foods that are low in saturated fats, trans-fats, cholesterol, salt (sodium), and glycemic index. Stressed the importance of regular exercise up to the patient's capacity limits. In this case, we recommend 20 min daily walking, 2 days a week of resistance training. Patient to monitor BP daily and bring records to PCP for further management. Follow-up: 1 year, April 2024 Not available 04/23/2023 16:08:21 04/21/2024 04/21/2024 Assessment: Moderate OSAHS, AHI = 25 Plan: The following were reviewed and explained to the patient: [facility] home sleep study 03/30/19 PAP compliance downloaded and interpreted x 20 minutes. Data reviewed and explained to the patient. Average apnea/hypopnea index (AHI) is 0.7. Patient used PAP > 4 hours 99% of the time. Major leakage is present times of use. PAP is set at 9-13 cmH2O. PAP will remain at 9-13 cmH2O. Change ramp start from 4 to 6 cmH2O. Change ramp duration from 45 to 30 minutes. Keep humidifier level at 2. Oxygen supplementation: none Patient is benefiting from PAP therapy. Encouraged patient to maintain PAP use more than 70% of the time. Statement of PAP use and benefits will be sent to the home care store. ResMed Air Sense 11 auto set unit with heated humidifier, supplies, ResMed small AirFit P10 nasal pillows @ 9-13 cmH2O. Ramp start at 6 cmH2O and ramp duration at 30 minutes. Further adjustment will be based on clinical response. The patient will bring the PAP unit, the hose, the cord, the mask and the card/chip to each follow-up visit for further evaluation and adjustments. Educated the patient on problems and solutions associated with positive airway pressure (PAP) use. Difficulty tolerating pressure, mask leaks, intolerance of interface, nasal congestion, claustrophobic response, dry mouth, and unintentional mask removal during sleep were covered. Patient has intolerance to interface. Patient will loosen mask slightly, ensure mask is situated properly, inspect and replace interface if worn out, use barrier such as moleskin or bandage for irritation at bridge of nose, have a temporary holiday from PAP, resize mask or obtain an oral interface. A major predictor of success with use of PAP is follow-up with both the respiratory supplier and the treating physician. To help assess adherence, a downloadable card/chip is ordered with the PAP equipment. The card/chip will be downloaded by the respiratory supplier and sent to the treating physician. The download results can show the treating physician information about adherence to treatment, residual AHI while on treatment and presence of large mask leakage. This information is especially helpful if the patient has residual sleepiness despite treatment. General information on sleep disorder breathing, evaluation of sleep disordered breathing, treatment with PAP therapy, and living with PAP therapy were covered. We discussed with the patient the impact of weight on: Sleep disordered breathing Hypertension DM SYDNI Osteoarthritis Plantar fasciitis We discussed with the patient the benefit of PAP therapy on: Sleep disordered breathing Rhinitis Hypertension DM SYDNI Educated the patient on sleep hygiene measures. Relaxing rituals to rest easy, understanding foods with positive and negative impact on sleep, creating a peaceful sleep environment, timing of exercise, using herbal sleep aids, and practicing sleep-friendly meditation were covered. To determine how much sleep is needed, the patient will assess where (s)he falls on the spectrum, examine what lifestyle factors such as work schedules and stress are affecting the quality and quantity of sleep. In general, adults need 7-9 hours of sleep. Educated the patient regarding foods that promote sleep. These include but are not limited to cherries, bananas, toast, oatmeal, and warm milk. Educated the patient regarding foods and drinks to avoid before bedtime. These include but are not limited to aged cheese, chocolate, spicy foods, tomato-based sauces, soy, ginseng tea and processed meat. Advocated influenza vaccination annually and pneumonia vaccination JEROME. Advocated weight loss through diet and exercise. Patient's ideal body weight according to height and gender is up to 185 lbs. Encouraged patient to adjust caloric intake to maintain/achieve ideal body weight, emphasizing on fruits, vegetables, whole grains, and fat-free or low-fat products. These include lean meats, poultry, fish, beans, eggs, and nuts and foods that are low in saturated fats, trans-fats, cholesterol, salt (sodium), and glycemic index. Stressed the importance of regular exercise up to the patient's capacity limits. In this case, we recommend 20 min daily walking, 2 days a week of resistance training. Patient to monitor BP daily and bring records to PCP for further management. Follow-up: 3 months, July 2024 Not available 04/21/2024 16:15:22 08/23/2024 08/23/2024 Assessment: Moderate OSAHS, AHI = 25 Plan: The following were reviewed and explained to the patient: [facility] home sleep study 03/30/19 PAP compliance downloaded and interpreted x 20 minutes. Data reviewed and explained to the patient. Average apnea/hypopnea index (AHI) is 0.6. Patient used PAP > 4 hours 88% of the time. PAP is set at 9-13 cmH2O. PAP will be reset at 10-13 cmH2O. Increase ramp at 6 to 7 cmH2O. Keep ramp duration at 15 minutes. Keep humidifier level at 1. Oxygen supplementation: none Patient is benefiting from PAP therapy. Encouraged patient to maintain PAP use more than 70% of the time. Statement of PAP use and benefits will be sent to the home care store. The patient will bring the PAP unit, the hose, the cord, the mask and the card/chip to each follow-up visit for further evaluation and adjustments. Educated the patient on problems and solutions associated with positive airway pressure (PAP) use. Difficulty tolerating pressure, mask leaks, intolerance of interface, nasal congestion, claustrophobic response, dry mouth, and unintentional mask removal during sleep were covered. Patient has intolerance to interface. Patient will loosen mask slightly, ensure mask is situated properly, inspect and replace interface if worn out, use barrier such as moleskin or bandage for irritation at bridge of nose, have a temporary holiday from PAP, resize mask or obtain an oral interface. A major predictor of success with use of PAP is follow-up with both the respiratory supplier and the treating physician. To help assess adherence, a downloadable card/chip is ordered with the PAP equipment. The card/chip will be downloaded by the respiratory supplier and sent to the treating physician. The download results can show the treating physician information about adherence to treatment, residual AHI while on treatment and presence of large mask leakage. This information is especially helpful if the patient has residual sleepiness despite treatment. General information on sleep disorder breathing, evaluation of sleep disordered breathing, treatment with PAP therapy, and living with PAP therapy were covered. We discussed with the patient the impact of weight on: Sleep disordered breathing Hypertension DM SYDNI Osteoarthritis Plantar fasciitis We discussed with the patient the benefit of PAP therapy on: Sleep disordered breathing Rhinitis Hypertension DM SYDNI Educated the patient on sleep hygiene measures. Relaxing rituals to rest easy, understanding foods with positive and negative impact on sleep, creating a peaceful sleep environment, timing of exercise, using herbal sleep aids, and practicing sleep-friendly meditation were covered. To determine how much sleep is needed, the patient will assess where (s)he falls on the spectrum, examine what lifestyle factors such as work schedules and stress are affecting the quality and quantity of sleep. In general, adults need 7-9 hours of sleep. Educated the patient regarding foods that promote sleep. These include but are not limited to cherries, bananas, toast, oatmeal, and warm milk. Educated the patient regarding foods and drinks to avoid before bedtime. These include but are not limited to aged cheese, chocolate, spicy foods, tomato-based sauces, soy, ginseng tea and processed meat. Advocated influenza vaccination annually and pneumonia vaccination JEROME. Advocated weight loss through diet and exercise. Patient's ideal body weight according to height and gender is up to 185 lbs. Encouraged patient to adjust caloric intake to maintain/achieve ideal body weight, emphasizing on fruits, vegetables, whole grains, and fat-free or low-fat products. These include lean meats, poultry, fish, beans, eggs, and nuts and foods that are low in saturated fats, trans-fats, cholesterol, salt (sodium), and glycemic index. Stressed the importance of regular exercise up to the patient's capacity limits. In this case, we recommend 20 min daily walking, 2 days a week of resistance training. Patient to monitor BP daily and bring records to PCP for further management. Follow-up: 1 year, August 2025 Not available 08/23/2024 15:43:03 Plan of Treatment Reminders Order Date Submit Date Provider Last Modified By Organization Details Last Modified Time Details Appointments Any 15 025 02:30PM Alfredo Galindo MD Not available Not available Not available Lab None record ed. Referral None record ed. Procedures None record ed. Surgeries None record ed. Imaging None record ed. Medication Orders None record ed. Patient TargetsNo targets recorded. Patient InstructionsNo instructions recorded. Reason for Referral None Reported. Problems Name Problem SNOMED Code Status Onset Date Resolution Date Notes Provider Name and Address Organization Details Recorded Time Plantar fasciitis of left foot 01496362396 865323 Active 2018 Not Available [facility] 3 05:56:09 Hammer toe 180579039 Completed 201804/23/2021 Not Available [facility] 3 05:56:09 Hammer toe 246622382 Active 2018 Not Available [facility] 3 05:56:09 Folliculi tis 64582701 Active Not Available [facility] 3 05:56:09 Nocturia 159411760 Active Not Available [facility] 3 05:56:09 Family history of diabetes mellitus 372355080 Active 2016 Not Available [facility] 3 05:56:09 Heartburn 34945532 Active 2018 Not Available [facility] 3 05:56:09 Condyloma acuminatu m of the anogenita l region 282016929 Active Not Available [facility] 3 05:56:10 Stiffness of joint of right foot 98420146582 9108 Active 2020 Not Available [facility] 3 05:56:10 Stiffness of joint of left foot 27342415399 9109 Active 2020 Not Available [facility] 3 05:56:10 Osteoarth ritis 695802968 Active Not Available [facility] 3 05:56:10 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 Active Not Available [facility] 3 05:56:10 Hypogonad ism 31803431 Active 2016 Not Available [facility] 3 05:56:10 Varicocel e 65639789 Active Not Available [facility] 3 05:56:10 Essential hypertens ion 30944301 Active Not Available [facility] 3 05:56:10 Hemorrhoi ds 70948231 Completed Not Available [facility] 3 05:56:10 Diabetes mellitus 19781887 Active Not Available [facility] 3 05:56:10 Sleep apnea 01355067 Active Not Available [facility] 3 05:56:10 Obstructi ve sleep apnea syndrome 19538945 Active 2018 Not Available [facility] 3 05:56:10 Fatigue 62104340 Active Not Available [facility] 3 05:56:10 Internal hemorrhoi ds 49985382 Active Not Available [facility] 3 05:56:10 Notes:Medical History: Glauc eliane, OU Rhinitis with postnasal drip Obesity with mod OSAHS, AHI = 25, 03/30/19, on autoCPAP c/o IVRC Hypertension T2DM SYDNI Hemorrhoids Hypogonadism Varicocele Condyloma cuminata Osteoarthritis Bilateral hammer toe Left plantar fasciitis Procedure History: Bilateral ear tube placement 1974 Oral cysts excision 1981 Vasectomy 1996 Left ACL repair 2001 Right 3rd finger cyst excision 2003 Bilateral CTS release surgeries 2009 2016 Left varicocelectomy 2017 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 Procedures Surgical History Date Name Laterality Status Provider Name and Address Organization Details Recorded Time 2 Kidney Stones completed Not Available [facility] 12/31/2022 05:52:27 Imaging Results None recorded. Procedure Notes None recorded. Medical Equipment None Reported. Allergies Allergen ID Allergen Name Allergen Category Reaction Reaction Severity Criticality Documentation Date Start Date Code Code System Note Provider Name and Address Organization Details Recorded Time 57250 Product containin g penicilli n (product) medicatio n Not available Not available Not available 12/31/2022 12731 8001 SNOMED Not Available [facility] 3 06:01:36 Medications Name Sig Start Date Stop Date Status Note LastModified by Organization Details LastModified Time doxycycline hyclate 100 mg capsule 04/23 completed Not Available Not Available Not Available clindamycin HCl 300 mg capsule 04/23 completed Not Available Not Available Not Available azithromyci n 250 mg tablet TAKE 2 TABLETS BY MOUTH ON DAY 1, AND THEN TAKE 1 TABLET BY MOUTH ONCE A DAY ON DAY 2 THROUGH DAY 5 04/21 completed Not Available Not Available Not Available hydrocodone 5 mg-acetamin ophen 325 mg tablet TAKE 1 TABLET BY MOUTH EVERY 4 HOURS NEEDED 04/30 completed Not Available Not Available Not Available minocycline 100 mg capsule Take 1 capsule every day by oral route for 15 days. active Not Available Not Available No t Available meloxicam 15 mg tablet TAKE 1 TABLET BY MOUTH ONCE DAILY WITH MEALS FOR 30 DAYS active Not Available Not Available No t Available prednisone 20 mg tablet TAKE 2 TABLETS BY MOUTH EVERY DAY WITH FOOD FOR 5 DAYS. DO NOT TAKE WITH ASPIRIN OR NSAIDS. START 3 04/21 completed Not Available Not Available Not Available amlodipine 5 mg tablet TAKE 1 TABLET BY MOUTH ONCE DAILY 06/20 /2024 completed Not Available Not Available Not Available sulfamethox azole 800 mg-trimetho prim 160 mg tablet TAKE 1 TABLET BY MOUTH TWICE DAILY 04/23 completed Not Available Not Available Not Available omeprazole 40 mg capsule,del ayed release 04/30 completed Not Available Not Available Not Available tramadol 50 mg tablet TAKE 1 TABLET BY MOUTH EVERY 6 HOURS NEEDED 04/30 completed Not Available Not Available Not Available oxycodone-a cetaminophe n 5 mg-325 mg tablet TK 1 T PO Q 6 H PRF MODERATE PAIN 04/30 completed Not Available Not Available Not Available Azopt 1 % eye drops,suspe nsion active Not Available Not Available Not Available tamsulosin 0.4 mg capsule TAKE 1 CAPSULE BY MOUTH ONCE DAILY AT BEDTIME 04/23 completed Not Available Not Available Not Available imiquimod 5 % topical cream packet Apply 1 packet 3 times a week by topical route. active Not Available Not Available No t Available meclizine 25 mg tablet 04/30 completed Not Available Not Available Not Available benzonatate 100 mg capsule 04/30 completed Not Available Not Available Not Available Cipro 500 mg tablet Take 1 tablet every 12 hours by oral route for 10 days. 01/30 completed Not Available Not Available Not Available triamcinolo ne acetonide 0.1 % topical ointment APPLY TOPICALLY TO THE AFFECTED AREA EVERY 12 HOURS SPARINGLY NEEDED 04/21 completed Not Available Not Available Not Available clotrimazol e-betametha sone 1 %-0.05 % topical cream use daily to affected area at bedtime active Not Available Not Available No t Available halobetasol propionate 0.05 % topical ointment APPLY TOPICALLY TWICE DAILY TO ANKLE RASH 04/23 completed Not Available Not Available Not Available polymyxin B sulfate 10,000 unit-trimet hoprim 1 mg/mL eye drops active Not Available Not Available Not Available dorzolamide 22.3 mg-timolol 6.8 mg/mL eye drops INSTILL 1 DROP INTO EACH EYE TWICE DAILY active Not Available Not Available No t Available mupirocin 2 % topical ointment active Not Available Not Available Not Available metoprolol succinate ER 25 mg tablet,exte nded release 24 hr TAKE 1 TABLET BY MOUTH ONCE DAILY FOR 30 DAYS active Not Available Not Available No t Available Anusol-HC 25 mg rectal suppository Insert 1 supposito ry every day by rectal route at bedtime for 7 days. 07/26 completed Not Available Not Available Not Available levofloxaci n 750 mg tablet TAKE 1 TABLET BY MOUTH ONCE DAILY 04/21 completed Not Available Not Available Not Available methylpredn isolone 4 mg tablets in a dose pack Take 1 package by oral route as directed. active Not Available Not Available No t Available doxycycline hyclate 20 mg tablet TAKE 1 TABLET BY MOUTH TWICE DAILY 1 HOUR PRIOR TO EATING (AVOID TAKING WITH MILK PRODUCTS) 04/21 completed Not Available Not Available Not Available ondansetron 4 mg disintegrat ing tablet DISSOLVE 1 TABLET IN MOUTH EVERY 8 HOURS NEEDED 04/23 completed Not Available Not Available Not Available cefdinir 300 mg capsule 04/21 completed Not Available Not Available Not Available fluticasone propionate 50 mcg/actuati on nasal spray,suspe nsion USE 1 TO 2 SPRAY(S) IN EACH NOSTRIL ONCE DAILY active Not Available Not Available No t Available doxycycline hyclate 100 mg tablet TAKE 1 TABLET BY MOUTH TWICE DAILY 04/23 completed Not Available Not Available Not Available diazepam 5 mg tablet TAKE 1 TABLET BY MOUTH THE EVENING BEFORE APPOINTME NT, THEN TAKE 1 TABLEY BY MOUTH 1 HOUR PRIOR TO APPOINTME NT 04/21 completed Not Available Not Available Not Available tadalafil 5 mg tablet TAKE 1 TABLET BY MOUTH ONCE DAILY NEEDED active Not Available Not Available No t Available Boostrix Tdap 2.5 Lf unit-8 mcg-5 Lf/0.5 mL intramuscul ar syringe ADM 0.5ML IM UTD 04/23 completed Not Available Not Available Not Available sildenafil (pulmonary hypertensio n) 20 mg tablet TAKE 3 TABLETS BY MOUTH ONCE DAILY NEEDED FOR ERECTILE DYSFUNCTI ON active Not Available Not Available No t Available brimonidine 0.2 %-timolol 0.5 % eye drops 1 INTO EACH EYE TWICE DAILY DIRECTED 04/21 completed Not Available Not Available Not Available Trelegy Ellipta 200 mcg-62.5 mcg-25 mcg powder for inhalation INHALE 1 PUFF ONCE DAILY RINSE MOUTH AFTER USE active Not Available Not Available No t Available Vitals Date Recorded Body mass index (BMI) Body height Heart rate Body weight Systolic blood pressure Diastolic blood pressure Provider Name and Address Organization Details Last Updated DateTime 1 32.9 kg/m2 180.34 cm 67 /min 264862. 8 g 151 mm[Hg] 104 mm[Hg] Not Available [facility] 3 05:53:54 Date Recorded Body mass index (BMI) Heart rate Body height Oxygen saturation Oxygen saturation in Arterial blood by Pulse oximetry Heart rate Respiratory rate Body temperature Body weight Systolic blood pressure Diastolic blood pressure Provider Name and Address Organization Details Last Updated DateTime 2 32.8 kg/m2 80 /min 180.34 cm 96 % 96 % 80 /min 15 /min 98.9 [degF] 348873. 21 g 130 mm[Hg] 80 mm[Hg] Not Available [facility] 3 05:53:54 Date Recorded Body height Body mass index (BMI) Body weight Body temperature Heart rate Systolic blood pressure Diastolic blood pressure Provider Name and Address Organization Details Last Updated DateTime 3 180.34 cm 33 kg/m2 422119. 24 g 98.1 [degF] 63 /min 124 mm[Hg] 82 mm[Hg] Araceli Neumann MA [facility] 3 15:53:50 Date Recorded Oxygen saturation Oxygen saturation in Arterial blood by Pulse oximetry Heart rate Respiratory rate Provider Name and Address Organization Details Last Updated DateTime 04/23/2023 95 % 95 % 63 /min 15 /min Alfredo Galindo MD [address] [place] [address], [place], [address], [facility] 3 16:08:51 Date Recorded Body height Body mass index (BMI) Body weight Heart rate Oxygen saturation Oxygen saturation in Arterial blood by Pulse oximetry Body temperature Systolic blood pressure Diastolic blood pressure Provider Name and Address Organization Details Last Updated DateTime 4 180.34 cm 33.8 kg/m2 840371. 35 g 63 /min 97 % 97 % 97 [degF] 120 mm[Hg] 68 mm[Hg] Mohan Espinosa CMA [facility] 4 15:39:36 Date Recorded Body height Body mass index (BMI) Body weight Heart rate Oxygen saturation Oxygen saturation in Arterial blood by Pulse oximetry Body temperature Systolic blood pressure Diastolic blood pressure Provider Name and Address Organization Details Last Updated DateTime 180.34 cm 34 kg/m2 253598. 54 g 75 /min 95 % 95 % 97.9 [degF] 124 mm[Hg] 72 mm[Hg] Mohan Espinosa CMA [place] [email or web address] [facility] [employer] 15:39:56 Date Recorded Heart rate Respiratory rate Provider Autumn vance and Address Organization Details Last Updated DateTime 08/23/2024 75 /min 15 /min Alfredo Galindo MD [address] [facility], [facility] [address], [place], [address], [facility] [employer] 08/23/2024 15:44:20 Social History Question Answer Notes LastModified by Organizat ion Details LastModified Time Tobacco Smoking Status Never Smoker Not Available [facility] 12/31/2022 05:52:14 What Is Your Level Of Alcohol Consumption? Occasional Information not available 04/23/2023 What Is Your Level Of Caffeine Consumption? Moderate Information not available 04/23/2023 In The 14 Days Before Symptom Onset, Have You Had Close Contact With A Laboratory-confi rmed COVID-19 While That Case Was Ill? No [id number] Information not available 12/31/2022 In The 14 Days Before Symptom Onset, Have You Had Close Contact With A Person Who Is Under Investigation For COVID-19 While That Person Was Ill? No [id number] Information not available 12/31/2022 What Type Of Diet Are You Following? REGULAR Information not available 04/23/2023 Do You Have An Electrostatic Air Filter? 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 Yes Information not available 04/23/2023 Do You Have A Humidifier? Yes Information not available 04/23/2023 Do You Have Moisture Problems In Your Home? No Information not available 04/23/2023 What Was The Date Of Your Most Recent Tobacco Screening? 04/23/2023 Information not available 04/23/2023 Do You Have Any Pets? Yes Information not available 04/23/2023 Do You Use Your Seat Belt Or Car Seat Routinely? Yes Information not available 04/23/2023 Do You Have Smoke And Carbon Monoxide Detectors In Your Home? Yes Information not available 04/23/2023 Are You Passively Exposed To Smoke? No Information not available 04/23/2023 Do You Feel Stressed (tense, Restless, Nervous, Or Anxious, Or Unable To Sleep At Night)? [id number] Information not available 04/23/2023 Do You Use Any Illicit Or Recreational Drugs? No Information not available 04/23/2023 Do You Use Sunscreen Routinely? No Only When Swimming Information not available 04/23/2023 Have You Recently Traveled Abroad? No [id number] Information not available 12/31/2022 Do You Have Any Dietary Restrictions? No Information not available 04/23/2023 Sex: Unknown Functional Status Question Answer Note LastModified by Organization D etails LastModified Time What is your exercise level? Moderate Information not available 04/23/2023 Mental Status None recorded. Family History Relationship Description Onset Age of this Age Resolved Age Notes LastModified by Organization Details LastModified Time Mother Malignant tumor of breast Not available 2022 16:04:27 Father Diabetes mellitus Not available 2022 16:04:48 Father Glaucoma Not available 0 04/23/2023 16:05:00 Medical History No medical history recorded. Immunizations Vaccine Type Date Status Note Provider Nam e and Address Organization Details Recorded Time COVID-19, mRNA, LNP-S, PF, 100 mcg/0.5mL dose or 50 mcg/0.25mL dose 1 completed Not Available [facility] 12/31/2022 06:01:25 COVID-19, mRNA, LNP-S, PF, 100 mcg/0.5mL dose or 50 mcg/0.25mL dose 1 completed Not Available [facility] 12/31/2022 06:01:25 Influenza, split virus, quadrivalent, preservative 9 completed Not Available [facility] 12/31/2022 06:01:25 Tdap 9 completed Not Available [facility] 12/31/2022 06:01:25 Past Encounters Encounter ID Performer Location Encounter Start Date Encounter Closed Date Diagnosis/Indication Diagnosis SNOMED-CT Code Diagnosis ICD10 Code Diagnosis Note [id number] [facility] [address] [address] 04/30/2021 00:00:00 04/30/2021 08:51:25 [id number] [facility] [address] [place] [address], [address] [address] 07/01/2021 00:00:00 07/01/2021 10:35:24 [id number] [facility] [address] [place] [address], [address] [address] 07/23/2021 00:00:00 07/23/2021 10:15:03 [id number] [facility] [address] [address] 04/30/2022 00:00:00 05/21/2022 10:29:08 [id number] Alfredo Galindo MD [facility] [address] 04/23/2023 15:27:25 04/24/2023 09:55:33 Obstructive sleep apnea syndrome 47490684 G47.33 [id number] Alfredo Galindo MD [facility] [address] [address] 04/21/2024 15:28:19 05/26/2024 08:27:04 Obstructive sleep apnea syndrome 62038746 G47.33 [id number] Alfredo Galindo MD [facility] [address] [address] 08/23/2024 15:28:25 08/24/2024 11:50:56 Obstructive sleep apnea syndrome 80212074 G47.33 Health Concerns Section Related Observation LastModified by Organization Detai ls LastModified Time None Recorded Concern Status LastModified by Organization Details LastModified Time None Recorded Advance Directives Directive None Recorded Payers Encounter Date Sequence Insurance Name Policy Number Policy Phillips Covered Member ID Phillips Member ID Guarantor Name 04/23/2023 1 [facility] PL[facility] [id number] Vickey Coreas [id number] Vickey Coreas 04/21/2024 1 [facility] [id number] Vickey Coreas [id number] Vickey Coreas 08/23/2024 1 [facility] [id number] Vickey Coreas [id number] Vickey Coreas Notes Date Note Type Note Provider Name and Address Organization Details Recorded Time 04/23/2023 text/html Primary care/Ref erring provider: Prem Moore MD [phone] home since 04/30/22, the patient uses a ResMed Air Sense 10 autoset unit with heated humidification. He does not need the ramp to start low and go up slowly on the pressure anymore. There is no xerostomia in a.m. There is no hose/mask condensation with water.Patient wears small nasal pillows without chin strap. There is no claustrophobia, no nostril/nose bridge irritation, no facial rash, no facial numbness, no nosebleeding.Patient feels more refreshed upon waking and daytime alertness is improved. Energy levels are sustained for the remainder of the day.At home, the patient sleeps from 10 pm to 5:45 am and wakes up with an alarm 3/7 days a week.Snoring: heavy, since .Snorting: noChoking: noCoughing: noGasping: yesGagging: noSighing: noWitnessed apnea: yesTwitching or jerking of leg(s), arm(s), body, head: noTeeth grinding: noTeeth clenching: noSleeptalking: noSleepwalking: noSleep crying: noBedwetting: noTongue/lip/gum/cheek biting: noSleeping with open mouth: noSleep paralysis: noHypnagogic hallucinations: noHypnopompic hallucinations: noVivid dreams: noDifficulty with sleep onset: noDifficulty with sleep maintenance: yesSleep interruptions: nocturiaPatient wakes up with: fatigueDaytime cataplexy: noMorning hypersomnolence: noAfternoon hypersomnolence: yesCaffeine sources in diet: coffee 3 cups per day, chocolate 1/2 candy bar per dayAssociated medical and psychiatric conditions:Congestive heart failure: noCoronary artery disease: noMyocardial infarction: noHypertension: yesStroke: noBronchial asthma: noChronic obstructive pulmonary disease: noDepression: noBipolar disorder: noAnxiety: noPanic disorder: noPosttraumatic stress disorder: noAttention deficit and hyperactivity disorder: noObsessive Compulsive disorder: noSchizophrenia: noSchizoaffective disorder: noPersonality disorder: noChronic analgesic use: noChronic sedative/hypnotic use: noEPWORTH SLEEPINESS SCALE (ESS)CHANCE OF DOZING SCORE0 = would never doze1 = slight chance of dozing2 = moderate chance of dozing3 = high chance of dozingSITUATION AND CHANCE OF DOZINGSitting and reading - 1Watching television - 0Sitting inactive in a public place (e.g. a theater or meeting) - 0As a passenger in a car for an hour without a break - 0Lying down to rest in the afternoon when circumstances permit - 1Sitting and talking to someone - 0Sitting quietly after lunch without alcohol - 0In a car, while stopped for a few minutes in the traffic - 2TOTAL SCORE 2Subjectively, patient has a slight chance of dozing. Alfredo Galindo MD [address] [place] [address], [phone], [place] [facility] 04/23/2023 16:09:52 04/21/2024 text/html Primary care/Ref erring provider: Luis Antonio Bustillos home since 04/23/23, the patient uses a ResMed Air Sense 10 autoset unit with heated humidification. He does not need the ramp to start low and go up slowly on the pressure anymore. There is no xerostomia in a.m. There is no hose/mask condensation with water.Patient wears small nasal pillows without chin strap. There is no claustrophobia, no nostril/nose bridge irritation, no facial rash, no facial numbness, no nosebleeding.Patient feels more refreshed upon waking and daytime alertness is improved. Energy levels are sustained for the remainder of the day.At home, the patient sleeps from 10 pm to 5:45 am and wakes up with an alarm 3/7 days a week.Snoring: heavy, since .Snorting: noChoking: noCoughing: noGasping: yesGagging: noSighing: noWitnessed apnea: yesTwitching or jerking of leg(s), arm(s), body, head: noTeeth grinding: noTeeth clenching: noSleeptalking: noSleepwalking: noSleep crying: noBedwetting: noTongue/lip/gum/cheek biting: noSleeping with open mouth: noSleep paralysis: noHypnagogic hallucinations: noHypnopompic hallucinations: noVivid dreams: noDifficulty with sleep onset: noDifficulty with sleep maintenance: yesSleep interruptions: nocturiaPatient wakes up with: fatigueDaytime cataplexy: noMorning hypersomnolence: noAfternoon hypersomnolence: yesCaffeine sources in diet: coffee 3 cups per day, chocolate 1/2 candy bar per dayAssociated medical and psychiatric conditions:Congestive heart failure: noCoronary artery disease: noMyocardial infarction: noHypertension: yesStroke: noBronchial asthma: noChronic obstructive pulmonary disease: noDepression: noBipolar disorder: noAnxiety: noPanic disorder: noPosttraumatic stress disorder: noAttention deficit and hyperactivity disorder: noObsessive Compulsive disorder: noSchizophrenia: noSchizoaffective disorder: noPersonality disorder: noChronic analgesic use: noChronic sedative/hypnotic use: noEPWORTH SLEEPINESS SCALE (ESS)CHANCE OF DOZING SCORE0 = would never doze1 = slight chance of dozing2 = moderate chance of dozing3 = high chance of dozingSITUATION AND CHANCE OF DOZINGSitting and reading - 0Watching television - 0Sitting inactive in a public place (e.g. a theater or meeting) - 0As a passenger in a car for an hour without a break - 0Lying down to rest in the afternoon when circumstances permit - 1Sitting and talking to someone - 0Sitting quietly after lunch without alcohol - 2In a car, while stopped for a few minutes in the traffic - 0TOTAL SCORE 3Subjectively, patient has a slight chance of dozing. Alfredo Galindo MD [address] [facility], [facility] [address], [place], [address], [facility] [employer] 04/21/2024 16:15:41 08/23/2024 text/html Primary care/Ref erring provider: Luis Antonio Bustillos home since 07/01/24, the patient uses a ResMed Air Sense 11 autoset unit with heated humidification. He does not need the ramp to start low and go up slowly on the pressure anymore. There is no xerostomia in a.m. There is no hose/mask condensation with water.Patient wears ResMed small AirFit P10 nasal pillows without chin strap. There is no claustrophobia, no nostril/nose bridge irritation, no facial rash, no facial numbness, no nosebleeding.Patient feels more refreshed upon waking and daytime alertness is improved. Energy levels are sustained for the remainder of the day.At home, the patient sleeps from 10 pm to 5:45 am and wakes up with an alarm 3/7 days a week.Snoring: heavy, since .Snorting: noChoking: noCoughing: noGasping: yesGagging: noSighing: noWitnessed apnea: yesTwitching or jerking of leg(s), arm(s), body, head: noTeeth grinding: noTeeth clenching: noSleeptalking: noSleepwalking: noSleep crying: noBedwetting: noTongue/lip/gum/cheek biting: noSleeping with open mouth: noSleep paralysis: noHypnagogic hallucinations: noHypnopompic hallucinations: noVivid dreams: noDifficulty with sleep onset: noDifficulty with sleep maintenance: yesSleep interruptions: nocturiaPatient wakes up with: fatigueDaytime cataplexy: noMorning hypersomnolence: noAfternoon hypersomnolence: yesCaffeine sources in diet: coffee 3 cups per day, chocolate 1/2 candy bar per dayAssociated medical and psychiatric conditions:Congestive heart failure: noCoronary artery disease: noMyocardial infarction: noHypertension: yesStroke: noBronchial asthma: noChronic obstructive pulmonary disease: noDepression: noBipolar disorder: noAnxiety: noPanic disorder: noPosttraumatic stress disorder: noAttention deficit and hyperactivity disorder: noObsessive Compulsive disorder: noSchizophrenia: noSchizoaffective disorder: noPersonality disorder: noChronic analgesic use: noChronic sedative/hypnotic use: noEPWORTH SLEEPINESS SCALE (ESS)CHANCE OF DOZING SCORE0 = would never doze1 = slight chance of dozing2 = moderate chance of dozing3 = high chance of dozingSITUATION AND CHANCE OF DOZINGSitting and reading - 0Watching television - 0Sitting inactive in a public place (e.g. a theater or meeting) - 0As a passenger in a car for an hour without a break - 0Lying down to rest in the afternoon when circumstances permit - 1Sitting and talking to someone - 0Sitting quietly after lunch without alcohol - 0In a car, while stopped for a few minutes in the traffic - 0TOTAL SCORE 1Subjectively, patient has a slight chance of dozing. Alfredo Galindo MD [address] [place] [address], [place] [address], [place], [address], [place] [facility] 08/23/2024 15:52:58
[2025-02-17 11:47] LABS: Basophils Absolute Auto 0.1 K/mm3 (0.0-0.1); Eosinophils Absolute Auto 0.1 K/mm3 (0-0.3); Eosinophils Percent Auto 1.7 % (0-4.4); Hematocrit 47.3 % (42.0-52.0); Hemoglobin 15.3 g/dL (14.0-18.0); Immature Granulocyte Absolute 0.03 K/mm3 (0.00-0.031); Immature Granulocyte Percent A 0.4 % (0-0.5); Lymphocytes Absolute Auto 1.59 K/mm3 (0.9-3.2); Lymphocytes Percent Auto 22.1 % (18.3-44.2); Mean Corpuscular HGB Conc 32.3 g/dl (32-36); Mean Corpuscular Hemoglobin 30.8 pg (26-34); Mean Corpuscular Volume 95.4 fl (80-100); Mean Platelet Volume 9.1 fl (7.4-10.4); Monocytes Absolute Auto 0.6 K/mm3 (0.1-0.6); Monocytes Percent Auto 7.9 % (2.6-8.5); Neutrophils Absolute Auto 4.8 K/mm3 (1.3-6.7); Neutrophils Percent Auto 66.9 % (45.5-73.1); Platelet Count Result 254 k/mm3 (150-375); Red Blood Count 4.96 M/mm3 (4.6-6.20); Red Cell Distribution Width 13.6 % (11.5-14.5); White Blood Count 7.2 K/mm3 (4.5-10.0)
[2025-02-17 12:04] LABS: Alanine Aminotransferase 20 U/L (6-50); Albumin Level 4.4 g/dL (3.5-5.1); Alkaline Phosphatase 76 U/L (38-126); Anion Gap 7 mmol/L (4-12); Aspartate Amino Transferase 22 U/L (17-59); Blood Urea Nitrogen 15 mg/dL (9-20); Calcium 9.1 mg/dL (8.4-10.2); Carbon Dioxide 27 mmol/L (22-30); Chloride 109 mmol/L (98-107); Cholesterol 177 mg/dL (0-200); Estimated Glomerular Filt Rate > 60; Glucose 94 mg/dL (65-110); HDL Direct 44 mg/dL; Potassium 4.9 mmol/L (3.4-5.0); Sodium 143 mmol/L (137-145); Triglycerides 77 mg/dL (<150)
[2025-02-17 12:15] LABS: LDL Cholesterol Direct 91 mg/dL
[2025-02-17 12:16] LABS: Hemoglobin A1C 5.5 % (<5.7)
[2025-02-17 12:21] LABS: Add Urine Microscopic? YES; Appearance Urine Clear (Clear); Bacteria Urine None Seen /hpf; Bilirubin Urine Negative (Negative); Blood Urine Trace (Negative); Color Urine Yellow (Yellow); Glucose Urine UA Negative (Negative); Ketones Urine 1+ mg/dL (Negative); Leukocyte Esterase Ur Negative LEU/UL (Negative); Need Manual Microscopic Reviewed; Nitrate Urine Negative (Negative); Non Pathogenic Casts 0-2; Protein Urine Negative (Negative); Specific Grav Ur 1.026 (1.001-1.035); Squamous Epithelial Cell Urine None Seen /hpf (Few); Urobilinogen Urine 0.2 mg/dL (<2.0); WBC Urine 0-5 /hpf (0-3)
[2025-02-17 12:33] LABS: Vitamin D 25 Hydroxy 31.7 ng/mL
== END 2025-02-17 11:14 | disposition home or self-care (01) ==
PROVIDERS: PCP Family Medicine; Visit Provider Nurse Practitioner
DX: R73.9 Hyperglycemia, unspecified (principal); I10 Essential (primary) hypertension; R53.83 Other fatigue; E55.9 Vitamin D deficiency, unspecified; Z00.00 Encounter for general adult medical examination without abnormal findings; Z13.21 Encounter for screening for nutritional disorder
CPT/HCPCS: 36415; 80053; 80061; 81001; 82306; 82607; 83036; 84443; 85025

== ENCOUNTER 2025-03-23 09:11 | Emergency (ER) | payer OTHER, SELFPAY ==
--- NOTE | 2025-03-23 09:14 | ED.UPPEXIN ---
HPI - Extremity Injury (Upper) General Chief Complaint: Skin/Abscess/Foreign Body Stated Complaint: LT Hand Injury Time Seen by Provider: 03/23/25 09:20 Source: patient, RN notes reviewed and old records reviewed Mode of arrival: ambulatory Limitations: no limitations History of Present Illness HPI narrative: 59-year-old male presents to the [facility] with complaints of red bump to the dorsal left hand mid 2nd metacarpal. Patient states he noticed it 1 month ago. Denies injury. Two weeks ago tried popping it with a needle but no discharge. Area today is firm, movable. Slight redness surrounding. No increased warmth Related Data Home Medications ?Medication ?Instructions ?Recorded ?Confirmed ?Last Taken ?Type metoprolol succinate 25 mg 25 mg PO BID 03/23/25 03/23/25 Unknown History tablet,extended release 24 hr semaglutide (weight loss) 0.5 0.5 mg subcut WEEKLY 03/23/25 03/23/25 Unknown History mg/0.5 mL subcutaneous pen injector (Wegovy) Allergies Allergy/AdvReac Type Severity Reaction Status Date / Time Penicillins Allergy Mild Swelling Verified 03/23/25 09:30 Review of Systems Review of Systems: All systems reviewed & are unremarkable except as noted in HPI and below Constitutional: Constitutional: Reports no additional constitutional complaints ENT: Reports system reviewed and no additional complaints, except as documented Cardiovascular: Cardiovascular: Reports no additional cardiovascular complaints, Denies chest pain and Denies dyspnea Respiratory: Respiratory: Reports no additional respiratory complaints, Denies chest congestion, Denies cough and Denies dyspnea Musculoskeletal: Musculoskeletal: Reports no additional musculoskeletal complaints Integumentary/Breasts: Skin/Breast: Reports as per HPI [facility] Past Medical History Medical History Obesity GEORGE on CPAP Social History Social History Smoking status: Never smoker Second hand tobacco smoke exposure: No Substance use: never Substance use type: does not use Living arrangements: with family Gender identity (if verbalized by the patient): Male Spiritual care concerns: No Comments At the time of my signature, I reviewed and agree with the nursing past medical, surgical, social, and family history. There is no relevant family history pertinent to the patient complaint. Exam Const: General: cooperative, healthy appearing, comfortable, no acute distress, well developed, alert and well nourished Nutritional Appearance: well nourished Orientation/consciousness: patient oriented x3 Limitations: no limitations HENMT: Head: normal to inspection Eyes: General: appearance normal, both eyes and all related structures Alignment and Position: alignment normal Neck: Neck: normal visual inspection, full ROM, no lymphadenopathy and no meningeal signs Chest: Chest palpation & inspection: normal inspection of the chest Resp: Effort & Inspection: normal respiratory effort and able to speak in complete sentences Cardio: Rate: regular rate Skin: General skin exam: normal color and no rashes or lesions noted Lesions: lesion noted (Dorsal left hand, 0.7x1cm raised area, firm) Neuro: General: patient oriented x3, gait normal, moves all extremities and no meningeal signs Cognition (Neuro): normal cognition Speech: normal speech Gait exam (Neuro): Normal gait present Extrem: General: normal to inspection, full ROM, capillary refill normal and normal gait Psych: Appearance: grossly normal and well kempt Mental Status: mental status grossly normal Speech and movement: Normal speech and movement present and Clear speech present Affect: normal affect Attitude: cooperative Course Course Level of Care: Express Care Visit Vital Signs Vital signs: Vital Signs Temperature 98.2 F 03/23/25 09:21 Pulse Rate 69 03/23/25 09:21 Respiratory Rate 16 03/23/25 09:21 Blood Pressure 133/85 03/23/25 09:21 Pulse Oximetry 100 03/23/25 09:21 Oxygen Delivery Room Air 03/23/25 09:21 Temperature 98.2 F 03/23/25 09:21 Pulse Rate 69 03/23/25 09:21 Respiratory Rate 16 03/23/25 09:21 Blood Pressure 133/85 03/23/25 09:21 Pulse Oximetry 100 03/23/25 09:21 Oxygen Delivery Room Air 03/23/25 09:21 Reviewed MDM - Extremity Injury (Upper) MDM Narrative Medical decision making narrative: Patient sitting in exam. Patient is nontoxic, vitals stable. Patient presents with 1 month history of a cyst-like structure. Patient tried draining it himself. No drainable area is noted. Area is firm, movable, tender. No fluctuance, no increased Patient appropriate for outpatient treatment, will cover with antibiotic due to some increased redness Patient appropriate for outpatient treatment with follow-up Discharge instructions reviewed with patient, as well as provided in writing per nursing staff. The instructions also include specific and strict return/GO TO THE ER as well as f/u information. All questions have been answered, and the patient deny any further questions with discharge and discharge plan. Some parts of this dictation were generated by voice recognition software and may contain typographical and/or grammatical inaccuracies. Differential Diagnosis Differential diagnosis: Likely other (Cysts, abscess) Critical Care Time Critical Care Time Critical Care Time: No Discharge Plan Discharge Clinical Impression: Cyst of hand Patient Disposition: Home Condition: Stable Instructions: Cyst (ED) Additional Instructions: Follow-up with dermatology or Dr. Raza for further evaluation and possible removal Follow-up with primary care provider For new or worsening symptoms go directly to emergency room Patient Language: [place] Prescriptions: New sulfamethoxazole-trimethoprim [Bactrim DS] 800-160 mg tablet 1 tablet PO Q12H Qty: 14 0RF No Action metoprolol succinate 25 mg tablet extended release 24 hr 25 mg PO BID Wegovy 0.5 mg/0.5 mL pen injector 0.5 mg SUBCUT WEEKLY Follow-up/Referrals: Monserrat Leyva MD [Physician] - 1 Week (express care follow up cyst dorsal left hand) UNKNOWN,DOCTOR [Non-Staff] - Time of Disposition: 09:31
[2025-03-23 09:21] VITALS: BP 133/85; PULSE 69; RESP 16; TEMP 36.8; O2SAT 100
== END 2025-03-23 09:42 | disposition home or self-care (01) ==
PROVIDERS: Emergency Provider Nurse Practitioner
DX: L72.9 Follicular cyst of the skin and subcutaneous tissue, unspecified (principal); G47.33 Obstructive sleep apnea (adult) (pediatric); E66.9 Obesity, unspecified; Z68.30 Body mass index [BMI] 30.0-30.9, adult
CPT/HCPCS: 99213; G0463

== ENCOUNTER → 2025-04-03 16:15 | Outpatient (REF) | payer OTHER, SELFPAY ==
--- NOTE | 2025-04-03 16:15 | S_PTH ---
PATIENT: Vickey Coreas LOC: [facility] U#:[id number] AGE/SX: 60/M ROOM: RE04/03/[address]: Nanette Donaldson PA-C : 1965 BED: DIS: SPEC #: [id number] RECD: 04/04/25 07:50 STATUS: ROSANA SOLANO #: [id number] VERONICA: 04/03/25 16:[address]: Nanette Donaldson DEPT: [facility] Surgical RECD BY: Misael Pantoja ENTERED: 04/04/25 07:50 SP TYPE: Surgical OTHR DR: PROCESS DESCRIPTION WRITER PHYSICIAN Tissues: A - Skin Procedures: Hematoxylin and Eosin Stain Gross and Microscopic Level 4
--- OUTSIDE RECORDS SUMMARY | 2025-04-03 16:18 | XMS_ITS | Clinical Summary ---
Author Organization [facility] [employer] Address [address] [place] [address] Care Team Providers Care Case Management Assistant Name Role Phone Prem Moore MD Primary Care Provider [phone] Source Comments [facility] [employer],non-[facility] [place] [facility] Affiliates and Associated Physician Practices is amultiple site organization consisting of ambulatory clinics and hospital sitesin [place], [place], [place] and [place]. This disclosure is being madepursuant to the Care Everywhere program and may not contain all information available regarding this patient. 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 Gender Identity Not on file Sexual Orientation Not on file Last Filed Vital Signs Vital Sign Reading Time Taken Comments Blood Pressure 118/68 11/27/2018 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 Pulse 84 11/27/2018 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 Temperature 36.5 C (97.7 F) 11/27/2018 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 Respiratory Rate 15 11/27/2018 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
--- OUTSIDE RECORDS SUMMARY | 2025-04-03 16:18 | XMS_ITS | Encounter Summary ---
Author Organization [facility] Health Address [address] [place] [address] Care Team Providers Care Skin Specialist Name Role Phone Prem Moore MD Primary Care Provider [phone] Encounter Details Date Type Department Care Team (Late st Contact Info) Description 12/25/2020 Lab Requisition [facility] Care DermPath Lab [address] [place] [address] Hari Flores MD [address] [place] [address] Social History Tobacco Use Types Packs/Day Years Used Date Smoking Tobacco: Never Smokeless Tobacco: Never Sex and Gender Information Value Date Recorded Sex Assigned at Not on file Legal Sex Male 4:57 AM TRAINING ADMINISTRATOR Gender Identity Not on file Sexual Orientation Not on file documented as of this encounter Plan of Treatment Not on file documented as of this encounter Procedures Procedure Name Priority Date/Time Associated Diagnosis Comments DERMATOPATHOLOGY Routine 12/24/2020 12:0 0 AM TRAINING ADMINISTRATOR documented in this encounter Results * DERMATOPATHOLOGY (12/24/2020 12:00 AM TRAINING ADMINISTRATOR) Case Report Dermatopathology Report Case: [id number] Authorizing Provider: Hari Flores MD Collected: 12/24/2020 12:00 AM Ordering Location: [facility] Care DermPath Lab Received: 12/25/2020 11:46 AM Pathologist: Griselda Renteria MD Specimen: Skin, right lateral mid back 10:46 AM [facility] DERMAT[facility] Final Diagnosis Specimen A. 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 10:46 AM [facility] DERMATOPATH[facility] Gross Description Specimen A: Received is one formalin filled container labeled with the patient's name and designated right lateral mid back. The specimen consists of a shave biopsy measuring [id number]. Jar 0. 10:46 AM [facility] DERMATOPATH[facility]Y [facility] Microscopic Description Specimen A. SKIN, [...] seen in an eczematous dermatitis. 10:46 AM [facility] DERMAT[facility] Disclaimer An external and internal positive and negative controls are appropriate for the histochemical, immunohistochemical and immunofluorescence stain(s) in this case (if any), except where stated explicitly. The performance characteristics of the stain(s) cited in this report were developed and its performance characteristic determined by the Dermatopathology Laboratory at [facility], directed by Dr. Verna Medina. These tests need not be, and therefore are not, approved by the [place] Food and Drug Administration. The tests are used for clinical purposes. Billing Codes Specimen Charges Stain Charges 31435 1 10:46 AM [facility] DERMAT[facility] Embedded Images 10:46 AM [facility] D[facility]MATOP[facility] Pathology/Cytolog y TISSUE SPECIMEN FROM SKIN / Unknown 12/24/2020 12/25/2020 11:46 AM TRAINING ADMINISTRATOR Hari Flores MD LAB - PATHOLOGY/CYTOLOGY ORD ERABLES Final Result DERMATOPATHOLOGY LABORATORY [facility] - Department of Dermatology [facility] Medicine [address] [place] [address], [address] [phone] documented in this encounter Visit Diagnoses Not on filedocumented in this encounter Care Teams Skin Specialist Relationship Specialty Start Date End Date Prem Moore MD [address] [place] [address] PCP - General 01/09/21 documented as of this encounter
--- OUTSIDE RECORDS SUMMARY | 2025-04-03 16:18 | XMS_ITS | Continuity of Care Document ---
Author Organization [facility] Address [address] [place] [address] Phone Care Team Providers Care Carton Wrapper Name Role Phone Alexandra OD, Juni Unavailable [...] Copied on Encounter Office/outpat ient Visit, Est [facility], [address] [place] [address] [address], [place], [place], [id number], [place] tel:[phone] [facility] Corporate Center No Information 1-201 0 Alexandra OD Juni. [address] , [address], [place], [place], [facility], [place]. tel:[phone] [facility], [address] [place] [address] [address], [place], [place], [id number], tel:[phone] [facility] No Information 9-201 0 Alexandra OD Juni. [address] [place], [place] [address]ate Center , [address], [place], [place], [facility], [place]. tel:[phone] Referring Provider: Juni Alexandra OD A, [facility] [address], [place], [place], [facility]. tel:[phone] [facility], [address] [place] [address] [address], [place], [place], [id number], tel:[phone] [facility] [place] No Information 1 7-200 9 Alexandra OD Juni. [address] [place], [place] [address], [place], [place], [facility], [place]. tel:[phone] Referring Provider: Juni Alexandra OD A, [address] [place], [place] [address]ate [address], [place], [place], [facility]. tel:[phone] Office/outpat ient Visit, [facility], [address] [place] [address] [address], [place], [place], [id number], tel:[phone] [facility] [place] No Information 1-200 9 Alexandra OD Juni. [address] [place], [place] [address]ate Center , [address], [place], [place], [facility], [place]. tel:[phone] Office/outpat ient Visit, [facility], [address] [place] [address] [address], [place], [place], [id number], [place] tel:[phone] [facility] [place] No Information Aug-2 1-200 8 Alexandra OD Juni. [address] [place], [place] [address]ate Center , [address], [place], [place], [facility], [place]. tel:[phone] [facility], [address] [place] [address] [address], [place], [place], [address], [place] tel:[phone] [facility] [place] No Information Behzad-0 3-200 8 Alexandra OD Juni. [address] [place] [address] Center , [address], [place], [address], [place]. tel:[phone] Office/outpat ient Visit, Est [facility], [address] [place] [address] [address], [place], [place], [address], [place] tel:[phone] [facility] [place] No Information May-2 0-200 8 Alexandra OD Juni. [address] [place] [address] Center , [address], [place], [address], [place]. tel:[phone] Referring Provider: Juni Aguilar, [address] [place] [address] [address], [place], [place], [facility]. tel:[phone] Office/outpat ient Visit, [facility], [address] [place] [address] [address], [place], [place], [address], [place] tel:[phone] [facility] [place] No Information J Luis-0 2-200 8 Alexandra OD Juni. [address] [place] [address] Center , [address], [place], [address], [place]. tel:[phone] [facility], [address] [place] [address] [address], [place], [place], [address], [place] tel:[phone] [facility] [place] No Information Dec-2 8-200 7 Alexandra OD Juni. [address] [place] [address] Center , [address], [place], [address], [place]. tel:[phone] Referring Provider: Juni Alexandra OD A, [address] [place], [place] [address]ate Center [address], [place], [address]. tel:[phone] [facility], [address] [place] [address] [address], [place], [place], [address], [place] tel:[phone] [facility] [place] No Information 1-200 7 Alexandra OD Juni. [address] , [address], [place], [place], [facility], [place]. tel:[phone] Referring Provider: Juni Alexandra OD A, [address], [place], [facility]. tel:[phone] Office/outpat ient Visit, [facility], [address] [place] [address] [address], [place], [place], [id number], [place] tel:[phone] SEC [facility] No Information 2-200 7 Alexandra OD Juni. [address] , [address], [place], [facility], [place]. tel:[phone] Office/outpat ient Visit, [facility], [address] [place] [address] [address], [place], [place], [id number], [place] tel:[phone] [facility] No Information 3 0-200 7 Alexandra OD Juni. [facility] [address], [address], [place], [place], [facility], [place]. tel:[phone] Office/outpat ient Visit, [facility], [address] [place] [address] [address], [place], [place], [address], [place] tel:[phone] [facility] No Information 6-200 7 Alexandra OD Juni. [address], [address], [place], [address], [place]. tel:[phone] Office/outpat ient Visit, [facility], [address] [place] [address] [address], [place], [place], [id number], [place] tel:[phone] [facility] [place] No Information Oct-2 9-200 6 Alexandra OD Juni. [address], [address], [place], [facility], [place]. tel:[phone] Referring Provider: Juni Aguilar, [address], [place], [address]. tel:[phone] Family History Family Member Type Diagnosis Age At Onset No Information Payers Payer name Insurance type Covered libertarian ID Authoriza tion(s) No Information Social History [...]
--- OUTSIDE RECORDS SUMMARY | 2025-04-03 16:18 | XMS_ITS | CONTINUITY OF CARE DOCUMENT ---
Author Name delia lin Address Unknown Organization [facility] Address [address] [place] [address] Phone [phone] Care Team Providers Care Garment Looper Name Role Phone Catalino DELVALLE, Hanna Unavailable EVANGELINA ESPINOZA MD Unavailable EVANGELINA ESPINOZA MD Unavailable INSURANCE PROVIDERS Payer name Policy type / Coverage type [place] red democrat ID [facility] [employer] 9 [id number]
== END ==
LOC: ANHLAB 16:15
PROVIDERS: Visit Provider Physician Assistant Surgical
DX: C44.629 Squamous cell carcinoma of skin of left upper limb, including shoulder (principal); L57.8 Other skin changes due to chronic exposure to nonionizing radiation
CPT/HCPCS: 88305